=== PATIENT | male | born 1965 | race Caucasian/White ===

== ENCOUNTER → 2018-11-15 | Outpatient (CLI) | payer OTHER, MEDICARE ==
[~2018-11-15] MED LIST: AUGMENTIN875 MG GT; CARAFATE1 G1 PO; CLONIDINE1 EAC1 TD; ETHAMBUTOL PO; FLUDROCORTISON0.1 MG PEG; HUMALOG100 UNITS/ SC; HYDRALAZINE HCL10 MG PO; INSULIN GLARGINE SQ; INSULIN LISPRO; INSULIN LISPRO SQ; LANTUS SQ; LANTUS100 UNITS/ SC; LORTAB ELIXIR473 ML JT; PHENERGAN JT; PHENERGAN SUPP25 MG RC; PROTONIX40 MG JT; PYRAZINAMIDE PO; PYRIDOXINE PO; TRANSDERM-SCOP1 EACH TD; VALIUM JT; VALIUM5 MG JT; Z.0.DOMPERIDONE1 GM MC; Z.0.LANTUS100 UNIT/1; Z.0.LANTUS100 UNIT/1 SQ; Z.0.LISINOPRIL10 MG; Z.0.LISINOPRIL10 MG PO; Z.0.LISINOPRIL2.5 MG PO; Z.0.LORTAB 7.5-5001 PO; Z.0.LOTREL 5-10 MG1 PO; Z.0.NOVOLOG100 UNIT/; Z.0.PHENERGAN SUPP25 RC; Z.0.PROTONIX40 MG PO; Z.0.REGLAN10 MG; Z.0.REGLAN10 MG PO; Z.0.TOPROL XL25 MG PO; Z.0.TOPROL XL50 MG; Z.0.TOPROL XL50 MG PO; Z.0.ZOFRAN4 MG PO; [UNRECOGNIZED DRUG - OTHER] PO
--- NOTE | 2018-11-15 15:31 | Diagnostic Imaging Report ---
EXAM: Renal Ultrasound INDICATION: Acute renal failure. COMPARISON: None TECHNIQUE: Transverse and longitudinal images of the kidneys and bladder were obtained. FINDINGS: Right Kidney: Length: Measures 11.7 x 4.7 x 5.3 cm Appearance: Normal echogenicity. Collecting system: No hydronephrosis Stones: None Cyst/Mass: None Left Kidney: Length: Measures 11.9 x 5.3 x 4.9 cm Appearance: Normal echogenicity. Collecting system: No hydronephrosis Stones: There is a 1.1 cm echogenic stone within the upper pole with associated shadowing. Cyst/Mass: None Bladder: Unremarkable in appearance. Bilateral ureteral jets are visualized. IMPRESSION: A 1.1 cm nonobstructing left upper pole renal stone. No evidence of hydronephrosis. Signed by: Dr. Moe Allan MD on 11/15/2018 3:28 PM
== END ==
LOC: US 14:00
PROVIDERS: ATTEND Internal Medicine Nephrology
DX: N17.9 Acute kidney failure, unspecified (principal)
CPT/HCPCS: 76770

== ENCOUNTER 2019-07-30 11:41 | Observation (INO) | payer OTHER, MEDICARE ==
[~2019-07-30] VITALS: Ht 182.9 cm; Wt 112.9 kg
--- NOTE | 2019-07-30 12:31 | Diagnostic Imaging Report ---
EXAM: PA and lateral views of the chest. COMPARISON: Chest radiograph 01/08/2013, report only available CLINICAL HISTORY: ^[id number] ^[id number] FINDINGS: Lines/tubes: Right chest port with tip overlying the mid SVC. Lungs: The lungs are well inflated. Minimal atelectasis in both lung bases. No lobar consolidations or pulmonary edema. Mild linear reticular opacities in the peripheral right upper lobe. Few tiny ossified granuloma in the right upper lobe. Pleura: There is no pleural effusion or pneumothorax. Heart and mediastinum: The cardiomediastinal silhouette is normal. Few small calcified lymph nodes overlying both seamus. Bones and soft tissues: No acute bony abnormalities. Focal elevation of the right hemidiaphragm. Upper abdomen: Surgical clips overlying the right upper quadrant. IMPRESSION: Mild reticular opacities in the right upper lobe containing few calcified granulomas may represent sequela of this patient known latent TB. Superimposed infection cannot be excluded. No prior images are available for comparison. Recommend follow-up chest radiograph in 3-4 weeks. Signed by: Dr. Debra Mckinney M.D. on 07/30/2019 12:28 PM
[2019-07-30] MEDS ORDERED: CEFTRIAXONE SOD 1 GM/NS 50 ML 50 ML IV STA (12:58)
[2019-07-30] MEDS ORDERED: AZITHROMYCIN 500MG/NS 250 ML 250 ML IV ONE (13:00)
[2019-07-30] MEDS ORDERED: AZITHROMYCIN 500MG/NS 250 ML 250 ML ONE (13:14)
[2019-07-30] MEDS ORDERED: CEFTRIAXONE SOD 1 GM/NS 50 ML 50 ML IV ONE ×2 (13:14→14:00)
[2019-07-30] MEDS ORDERED: SODIUM CHLORIDE FLUSH 10 ML SYR INJ PRN (13:45)
[2019-07-30] MEDS ORDERED: SODIUM CHLORIDE 0.9% 1000 ML BAG IV ONE ×2 (13:45→14:00)
[2019-07-30] MEDS ORDERED: SODIUM CHLORIDE 0.9% 500ML 500 ML ONE ×2 (13:46→14:00)
[2019-07-30] MEDS: CEFTRIAXONE SOD 1 GRAM/0.9% SOD CHL 50ML BAG IV SCH (14:00)
[2019-07-30] MEDS: AZITHROMYCIN 500MG/SOD CHL 0.9% 250ML BAG IV SCH (15:19)
--- NOTE | 2019-07-30 17:15 | NUR ---
RCD PT BY BED PT IS ALERT AND ORIENTED VITALS CHECKED PT RESTING ON BED NO SIGNS OF ANY DISTRESS NOTED ADMISSION ASSESSMENT AND HISTORY DONE INSTRUCTED THE PT REGARDING HOSPITAL POLICY AND ROUTINE BED LOW AND LOCKED CALL LIGHT IN REACH
[2019-07-30] MEDS: SODIUM CHLORIDE 0.9% 1000ML 1,000 ML IV SCH ×2 (17:30→22:45)
[2019-07-30 17:40] VITALS: BP 160/94
[2019-07-30 17:49] VITALS: BP 160/94
[2019-07-30 17:58] VITALS: BP 160/94
[2019-07-30] MEDS ORDERED: DEPAKOTE250 MG PO (18:43)
[2019-07-30] MEDS ORDERED: MIDODRINE HCL2.5 MG PO (18:43)
[2019-07-30] MEDS ORDERED: ATORVASTATIN CA20 MG PO (18:43)
[2019-07-30] MEDS ORDERED: LEXAPRO10 MG PO (18:43)
[2019-07-30] MEDS ORDERED: ERGOCALCIFEROL1 GM PO (18:43)
[2019-07-30] MEDS ORDERED: SODIUM BICARBO650 MG PO (18:43)
--- NOTE | 2019-07-30 18:45 | NUR ---
PT RESTING ON BED BED SIDE REPORT GIVEN TO ONCOMING NURSE
[2019-07-30 20:00] VITALS: BP 177/96
[2019-07-30 20:13] LABS: CREATINE KINASE MB 4.2 ng/mL (0-5.0)
[2019-07-30 20:17] VITALS: BP 177/96
[2019-07-30] MEDS: ALBUTEROL SULF 0.083% NEB SOLN 3 ML NEB NEB SCH (21:00)
[2019-07-30] MEDS: ACETAMINOPHEN 325 MG TAB PO PRN (22:34)
--- NOTE | 2019-07-30 22:50 | NUR ---
Patient states he is using CPAP at night. Respiratory therapist notified nurse that patient heart rate increased after breathing treatment. Suggested to change breathing treatment to Xopenex. Paged Dr. Merlin Dennis for orders. Waiting for call back.
--- NOTE | 2019-07-30 23:40 | NUR ---
Call received from . Order received to continue CPAP and Albuterol.
[2019-07-31] VITALS (9 sets, daily range): BP systolic 105–213; BP diastolic 54–108
[2019-07-31] MEDS: ALBUTEROL SULF 0.083% NEB SOLN 3 ML NEB NEB SCH ×2 (03:55→07:16)
[2019-07-31 05:12] LABS: BASOPHILS # (AUTO) 0.1 (0.0-0.1); BASOPHILS % 0.5 % (0.0-1.0); EOSINOPHILS # (AUTO) 0.1 (0.0-0.4); EOSINOPHILS % 0.8 % (0.0-6.0); HEMATOCRIT 32.8 % (38.2-49.6); HEMOGLOBIN 10.4 g/dL (14.0-18.0); LYMPHOCYTES # (AUTO) 3.1 (1.0-3.2); MEAN CORPUSCULAR HGB CONC 31.7 g/dL (31-35); MEAN CORPUSCULAR VOLUME 94.5 fL (81-99); MONOCYTES # (AUTO) 1.3 (0.2-0.8); MONOCYTES % 8.5 % (4.4-11.3); NEUTROPHILS # (AUTO) 10.1 (2.1-6.9); NEUTROPHILS % 68.4 % (38.7-80.0); PLATELET COUNT 268 x10e3/uL (140-360); RED BLOOD COUNT 3.47 x10e6/uL (4.3-5.7); RED CELL DISTRIBUTION WIDTH 12.7 % (11.7-14.4)
[2019-07-31 05:38] LABS: CALCIUM 9.1 mg/dL (8.4-10.2); CREATININE, SERUM 3.21 mg/dL (0.72-1.25)
[2019-07-31 06:36] LABS: CREATINE KINASE MB 5.5 ng/mL (0-5.0)
[2019-07-31] MEDS: SODIUM CHLORIDE 0.9% 1000ML 1,000 ML IV SCH ×3 (06:45→23:03)
--- NOTE | 2019-07-31 07:10 | NUR ---
RCD PT AT BED PT IS ALERT AND ORIENTED PT RESTING ON BED IV PATENT BY SALINE FLUSH BED LOW AND LOCKED CALL LIGHT IN REACH
[2019-07-31] MEDS: ESCITALOPRAM OXALATE 10 MG TAB PO SCH (11:00)
[2019-07-31] MEDS: MIDODRINE 2.5 MG TAB PO SCH ×2 (12:00→17:07)
[2019-07-31 12:17] LABS: CREATINE KINASE MB 4.9 ng/mL (0-5.0)
[2019-07-31] MEDS: ACETAMINOPHEN 325 MG TAB PO PRN (13:06)
[2019-07-31] MEDS: LEVALBUTEROL HCL SOLN NEBU 0.63 MG/3 ML NEB INH SCH ×2 (13:43→20:15)
[2019-07-31] MEDS: CEFTRIAXONE SOD 1 GRAM/0.9% SOD CHL 50ML BAG IV SCH (13:45)
[2019-07-31] MEDS: AZITHROMYCIN 500MG/SOD CHL 0.9% 250ML BAG IV SCH (13:45)
[2019-07-31] MEDS: DIVALPROEX SODIUM 250 MG TAB...DR PO SCH (16:53)
--- NOTE | 2019-07-31 19:06 | NUR ---
PT RESTING ON BED BED SIDE REPORT GIVEN TO ONCOMING NURSE
--- NOTE | 2019-07-31 19:17 | Consultation ---
DATE OF CONSULTATION: 07/31/2019 Pulmonary Consultation REASON FOR CONSULT: Possibly the patient is concerned about the "right upper lobe pain" and shortness of breath, cough, and congestion. HISTORY OF PRESENT ILLNESS: Mr. Ambrosio is a 53-year-old male. He is known to Dr. Doherty for many years. He was a respiratory therapist. Currently, he does not work. He was diagnosed with severe gastroparesis a few years ago and underwent gastric pacemaker placement and since then, he is not working. He was diagnosed with TB in 2011 and what sounds like that he was probably treated for latent TB. He has some scarring on the chest x-ray. He is concerned that for a week, he is having cough, congestion, mild shortness of breath on exertion, and the congestion is progressive. He also has postnasal dripping. He denies any fever, nausea, vomiting, or diarrhea. His cough is also intermittent. It is somewhat productive. He has never smoked in his life. REVIEW OF SYSTEMS: GENERAL: Denies any fever or chills. HEAD: Denies any head trauma. ENT: Denies any earache. CVS: Denies any chest pain. RESPIRATORY: No shortness of breath. GI: Denies any nausea or vomiting. The rest of the review of systems are negative except as in HPI. PAST MEDICAL HISTORY: Diabetes, hypertension, hyperlipidemia, chronic kidney disease. PAST SURGICAL HISTORY: Gastric stimulator, placed PEG tube in the past, cholecystectomy, appendectomy. FAMILY AND SOCIAL HISTORY: He does not smoke, does not drink. PHYSICAL EXAMINATION: VITAL SIGNS: Temperature 98.1, pulse of 100, blood pressure 162/70, respiratory rate of 18, and O2 saturation 95% on room air. HEENT: Head atraumatic, normocephalic. NECK: Supple. CHEST: Reduced air entry, right upper lobe. Otherwise, clear to auscultation bilaterally. No wheezing. HEART: S1, S2 audible. ABDOMEN: Soft. EXTREMITIES: No pedal edema. NEUROLOGIC: Awake, alert. No focal neurologic deficit. LABORATORY DATA: Creatinine is 3.21, bicarb of 15. White count of 14, hemoglobin 10.4. Chest x-ray: I have reviewed the images, not showing any focal infiltrate. There is some scarring in the right upper lobe. ASSESSMENT: Mr. Ambrosio is a 53-year-old male who came in with cough, congestion, possibility of pneumonia versus upper respiratory tract infection, history of latent tuberculosis in the past, now with chronic kidney disease. Creatinine is 3.21 previously and the last one here was normal. However, Dr. Dennis's documentation says that the patient has chronic kidney disease. Current problems: 1. Possible pneumonia. 2. Abnormal chest x-ray with right upper lobe scarring, likely due to latent tuberculosis. 3. Diabetes mellitus with complications. 4. Gastroparesis, has gastric stimulator. 5. Hypertension. 6. Hyperlipidemia. PLAN: 1. Agree with IV Rocephin, azithromycin, and nebulizer treatment. I will do a CT chest without contrast to further evaluate the right upper lobe. Oxygen as needed to keep the O2 saturation more than or equal to 92%. 2. The patient also has history of obstructive sleep apnea and will be using the CPAP in his home settings. Thank you for this consult. MD HAL Gross/NOAM /[id number]
--- NOTE | 2019-07-31 20:04 | NUR ---
Notified Levar Bell regarding patient BP 201/106, 104. Start Metoprolol Tart 25 mg po BID, first does now.
[2019-07-31] MEDS: METOPROLOL TARTRATE 25 MG TAB PO SCH (20:25)
[2019-07-31] MEDS: ATORVASTATIN 20 MG TAB PO SCH (20:26)
[2019-08-01] VITALS (8 sets, daily range): BP systolic 140–179; BP diastolic 71–86
[2019-08-01] MEDS: LEVALBUTEROL HCL SOLN NEBU 0.63 MG/3 ML NEB INH SCH ×4 (00:30→19:45)
[2019-08-01] MEDS: MIDODRINE 2.5 MG TAB PO SCH ×3 (05:58→17:32)
[2019-08-01] MEDS: SODIUM CHLORIDE 0.9% 1000ML 1,000 ML IV SCH ×3 (05:58→22:45)
--- NOTE | 2019-08-01 06:36 | Diagnostic Imaging Report ---
EXAM: CT Chest WITHOUT contrast INDICATION cough, abnormal chest x-ray: COMPARISON: Chest x-ray 07/30/2019 7: Chest CT 05/15/2011 TECHNIQUE: Chest was scanned utilizing a multidetector helical scanner from the lung apex through the level of the adrenal glands without administration of IV contrast. Absence of intravenous contrast decreases sensitivity for detection of lymphadenopathy and vascular pathology. Coronal and sagittal reformations were obtained. Routine protocol was performed. IV CONTRAST: None COMPLICATIONS: None RADIATION DOSE: Total DLP: 762 mGy*cm Estimated effective dose: (DLP x 0.014 x size factor) mSv CTDIvol has been reviewed. It is below the limits set by the Radiation Protocol Committee (RPC). Dose modulation, iterative reconstruction, and/or weight based adjustment of the mA/kV was utilized to reduce the radiation dose to as low as reasonably achievable. FINDINGS: LINES/ TUBES: Right chest wall port with right IJ central venous catheter, tip in the superior cavoatrial junction.. LUNGS AND AIRWAYS: Right upper lobe groundglass, nodular, and reticular opacities and volume loss, similar compared to chest CT in 2011. Scarring and subsegmental atelectasis in the lateral aspect of the right midlung at a site of prior groundglass and tree-in-bud opacities seen on 2011. Bibasilar atelectasis. Airways are normal. PLEURA: The pleural spaces are clear. HEART AND MEDIASTINUM: The thyroid gland is normal. No mediastinal, hilar or axillary lymphadenopathy. The heart is normal in size. There is no pericardial effusion. Left anterior descending coronary and right artery calcifications. UPPER ABDOMEN: Unremarkable. Bilateral perinephric fat stranding. Nonobstructive left renal calculus. Cholecystectomy clips in the gallbladder fossa. Moderate colonic stool burden. Partially visualized linear metallic densities along the greater curvature of the gastric antrum. BONES: The visualized bony thorax is within normal limits. SOFT TISSUES: Unremarkable. IMPRESSION: Right upper lobe findings of scarring and volume loss are similar compared to chest CT in 2011, and focal scarring in the lateral aspect of the right lower lobe at site of prior infection in 2011, and are compatible with the chronic sequela of infection. Left anterior descending and right coronary artery calcific atherosclerosis. Signed by: Oskar Oviedo DO on 08/01/2019 6:33 AM
[2019-08-01 08:05] LABS: BASOPHILS # (AUTO) 0.1 (0.0-0.1); BASOPHILS % 0.7 % (0.0-1.0); EOSINOPHILS # (AUTO) 0.3 (0.0-0.4); EOSINOPHILS % 3.1 % (0.0-6.0); HEMATOCRIT 30.7 % (38.2-49.6); HEMOGLOBIN 9.9 g/dL (14.0-18.0); LYMPHOCYTES # (AUTO) 2.4 (1.0-3.2); LYMPHOCYTES % 22.9 % (18.0-39.1); MEAN CORPUSCULAR HEMOGLOBIN 30.4 pg (28-32); MEAN CORPUSCULAR HGB CONC 32.2 g/dL (31-35); MEAN CORPUSCULAR VOLUME 94.2 fL (81-99); MONOCYTES # (AUTO) 0.8 (0.2-0.8); MONOCYTES % 7.2 % (4.4-11.3); NEUTROPHILS # (AUTO) 6.9 (2.1-6.9); NEUTROPHILS % 65.3 % (38.7-80.0); PLATELET COUNT 283 x10e3/uL (140-360); RED BLOOD COUNT 3.26 x10e6/uL (4.3-5.7)
[2019-08-01 08:30] LABS: ANION GAP 17.3 mmol/L (8-16); CREATININE, SERUM 2.64 mg/dL (0.72-1.25); POTASSIUM 4.3 mmol/L (3.5-5.1)
[2019-08-01] MEDS: ESCITALOPRAM OXALATE 10 MG TAB PO SCH (08:33)
[2019-08-01] MEDS: DIVALPROEX SODIUM 250 MG TAB...DR PO SCH ×2 (08:33→17:32)
[2019-08-01] MEDS: SODIUM BICARBONATE 650 MG TAB PO SCH (08:33)
[2019-08-01] MEDS: METOPROLOL TARTRATE 25 MG TAB PO SCH ×2 (08:34→17:32)
--- NOTE | 2019-08-01 09:00 | NUR ---
Sent to R1 for review.
--- NOTE | 2019-08-01 12:00 | NUR ---
R1 recommending outpatient. Spoke to Dr. Dennis regarding plan. Informed him of R1's recommendation. He states pt not ready for discharge. States plan for possible dc tomorrow.
[2019-08-01] MEDS: CEFTRIAXONE SOD 1 GRAM/0.9% SOD CHL 50ML BAG IV SCH (13:34)
[2019-08-01] MEDS: AZITHROMYCIN 500MG/SOD CHL 0.9% 250ML BAG IV SCH (14:38)
[2019-08-01] MEDS: ATORVASTATIN 20 MG TAB PO SCH (20:48)
[2019-08-02] VITALS: BP 165/77
[2019-08-02] MEDS: LEVALBUTEROL HCL SOLN NEBU 0.63 MG/3 ML NEB INH SCH ×2 (01:00→07:05)
[2019-08-02 04:00] VITALS: BP 146/96
[2019-08-02] MEDS: MIDODRINE 2.5 MG TAB PO SCH ×2 (05:46→12:00)
[2019-08-02] MEDS: SODIUM CHLORIDE 0.9% 1000ML 1,000 ML IV SCH (06:32)
[2019-08-02] MEDS: SODIUM BICARBONATE 650 MG TAB PO SCH (08:45)
[2019-08-02] MEDS: METOPROLOL TARTRATE 25 MG TAB PO SCH (08:45)
[2019-08-02] MEDS: ESCITALOPRAM OXALATE 10 MG TAB PO SCH (08:45)
[2019-08-02] MEDS: DIVALPROEX SODIUM 250 MG TAB...DR PO SCH (08:45)
[2019-08-02 08:54] VITALS: BP 168/77
[2019-08-02 09:04] VITALS: BP 168/77
[2019-08-02] MEDS ORDERED: CEFUROXIME250 MG PO (11:41)
[2019-08-02 11:58] VITALS: BP 133/63
--- NOTE | 2019-08-02 13:00 | NUR ---
Discharge instructions and prescriptions were given to the patient. He verbalized understanding. IV to the left FA was removed with tip intact.
--- OUTSIDE RECORDS SUMMARY | 2019-08-05 12:03 | XMS REPORT | Summary of Care ---
Author Author [facility] Organization [facility] Address Unknown Phone Unavailable Care Team Providers Care Disability Benefits Specialist Name Role Phone Donna Le MD Unavailable Juan J Tyler MD PCP Juan J Tyler MD 24 Reason for Visit * Reason Comments Follow-up Visit - Diabetes Encounter Details Care Team Description Date Type Department Lisa Brock MD [address] [place] [address] Follow-up Visit - Diabetes 06/17/2019 Office Visit [facility] Endocrinology [address]; [address] [place] [address] Allergies Comments Active Allergy Reactions Severity Noted Date Levaquin 07/15/2012 Reglan 09/27/2012 documented as of this encounter (statuses as of 06/17/2019) Medications End Date Status Medication Sig Dispensed Refills Start Date Active escitalopram (LEXAPRO) 10 Take 2 Tabs 180 Tab 3 MG tabletIndications: by mouth 7 Depression, unspecified daily. depression type Active pantoprazole (PROTONIX) Take 1 Tab by 90 Tab 3 40 MG tabletIndications: mouth daily. 7 Gastroesophageal reflux disease, esophagitis presence not specified Active midodrine 10 MG Take 10 mg by 270 Each 3 TABSIndications: mouth 3 times 7 Orthostatic hypotension daily. Active fludrocortisone Take 1 Tab by 90 Each 3 (FLORINEF) 0.1 MG mouth daily. 7 tabletIndications: Orthostatic hypotension Active montelukast (SINGULAIR) Take 10 mg by 0 10 MG tabletIndications: mouth daily. 7 DM type 1 causing complication (HCCode), Dyslipidemia, Vitamin D deficiency, Fatigue, unspecified type Active Levocetirizine 0 Dihydrochloride 5 MG 7 TABSIndications: DM type 1 causing complication (HCCode), Dyslipidemia, Vitamin D deficiency, Fatigue, unspecified type Active divalproex (DEPAKOTE) 250 TAKE ONE (1) 3 MG ER tablet TABLET(S) BY 8 MOUTH DAILY. Active cyanocobalamin 1000 INJECT ONE 3 MCG/ML injection (1) ML(S) 8 ONCE A DAY FOR 4 DAYS, THEN ONCE A WEEK. Active atorvastatin (LIPITOR) 40 Take 1 Tab by 30 Tab 5 MG tabletIndications: mouth daily. 9 Dyslipidemia Active insulin aspart (NOVOLOG) Use up to 70 60 mL 4 100 UNIT/ML units daily 9 injectionIndications: DM via insulin type 1 causing pump complication (HCCode), Dyslipidemia, Vitamin D deficiency, Fatigue, unspecified type Active Glucose Blood Strips Check glucose 400 Each (CONTOUR NEXT TEST) 4x daily; Dx 9 E10.8 Active Vitamin D, 0 Ergocalciferol, 1.25 MG 9 (60841 UT) CAPS Active sodium bicarbonate 650 MG TAKE ONE (1) 2 tablet TABLET(S) BY 9 MOUTH TWICE A DAY. documented as of this encounter (statuses as of 06/17/2019) Active Problems Problem Noted Date Hypoglycemia unawareness in type 1 diabetes mellitus (HCCode) 04/06/2018 Ulcer of other part of foot 07/13/2013 Overview: L heel wound He has traumatized the medial aspect of his left heel. It is a superficial lesion that is clean but is about 3 cm in diameter. -continue to leave it exposed to air during day -continue antibiotic cream -hydrogen peroxide -must wear some type of shoes at home Diabetic retinopathy (HCCode) 07/13/2013 Overview: He will schedule appt with opthalmologist in July. He was told that he needs to have laser tx. Neurogenic bladder, NOS 07/13/2013 Overview: Bladder was distended and he was unable to void. Dr. Aguilar placed a suprapubic catheter in his bladder. He says that his vision and dexterity do not permit self-cath. works, so she could only do it once a day. Currently, he is not taking any prophylactic antibiotic, but he and his know to seek medical help if he has fever. Orthostatic hypotension 07/12/2013 Overview: . Postural Hypotension - This is likely due to autonomic dynfunction from poorly controlled DM over several years as demonstrated by the severity of his gastroparesis. -continue wearing support hose up above knee (especially when heel wound improved) -continue fludrocortisone 50mcg qdaily - continue midodrine 10 mg tid -abd binder is uncomfortable with the feeding tubes -1g salt tablets BID -re-start 20 mEq KCl daily - monitor orthostatic BP - make transitions slowly from supine to sitting and sitting to standing - raise head of bed on 3 inch blocks QUINN (acute kidney injury) (HCCode) 07/12/2013 Overview: 06/18/2013 18:14 06/19/2013 04:51 06/27/2013 13:43 Creatinine 1.29 (H) 1.18 0.96 This does not appear to be a problem at this time 07/12/13 DM type 1 causing complication (HCCode) 05/02/2013 Overview: A1c 8. On continous TF and BID soup -change to NPH 16U q AM and 14U qHS -continue regular SSI Low Dose 1U for every 50 > 200 before evening chicken soup -AM and HS accucheck and predinner soup accucheck -hypoglycemia protocol We will have to accept moderate glucose control because of multiple medical problems. Gastroparesis 07/15/2012 Overview: He has J-tube and is receiving TF 24 hours/d He has been able to tolerate some soup at meal times HTN (hypertension) 07/15/2012 Overview: Raise head of bed 3 inches on blocks HLD (hyperlipidemia) 07/15/2012 Depression 07/15/2012 Tuberculosis 07/15/2012 documented as of this encounter (statuses as of 06/17/2019) Social History Date Tobacco Use Types Packs/Day Years Used Never Smoker Smokeless Tobacco: Never Used Drinks/Week oz/Week Comments Alcohol Use No Sex Assigned at Date Recorded Not on file Industry Job Start Date Occupation Not on file Not on file Not on file Travel End Travel History Travel Start No recent travel history available. documented as of this encounter Last Filed Vital Signs Reading Time Taken Comments Vital Sign 118/60 06/17/2019 2:19 PM CDT Blood Pressure 105 06/17/2019 2:19 PM CDT Pulse - - Temperature - - Respiratory Rate - - Oxygen Saturation - - Inhaled Oxygen Concentration 112 kg (247 lb) 06/17/2019 2:19 PM CDT Weight 167.6 cm (5' 6") 06/17/2019 2:19 PM CDT Height 39.87 06/17/2019 2:19 PM CDT Body Mass Index documented in this encounter Patient Instructions * Patient Instructions* Lisa Brock MD - 06/17/2019 2:30 PM CDT Schedule eye exam Please remember to use a temporary basal of 50% when you are going to be active and have a snack before starting the activity. I recommend continuing to use a continuous glucose sensor with alarms for preven tion and detection of hypoglycemia (low blood sugars) especially because you hav e hypoglycemia unawareness. Take a square wave bolus dose with meals: 1.0 to 3.0 units If you have blood sugars less than 80 mg/dl, the basal rate should be decreased further. Return for a follow-up visit in 3 months Thank you [facility]. If you have questions about your visit or your treatment, or if you have difficst. [facility] scheduling an appointment, please call us at [phone] and leave a messag e for the nurse Ms. Appiah, or please send us a [employer] message. documented in this encounter Progress Notes * Lisa Brock MD - 06/17/2019 2:30 PM CDT [facility] END[facility]CR[facility] [address]; [address] [facility] [address] Dept: [phone] Dept Chief Complaint: Follow-up Visit - Diabetes History of Present Illness Mr. Ambrosio is a 53 y.o. White male who presents for diabetes management. H/o long standing uncontrolled diabetes (likely type 1, Dx age 23, had DKA previ ously) complicated by PDR, peripheral and autonomic neuropathy, CKD. + hypoglycemia awareness. Using sensor since 03/2018 but ocassionally skips. Compliant with diet recommendations. Seeing Neurology for mood swings treated with Depakote, and h/o head injury. 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 Cataract surgery, PDR s/p later both eyes. Followed by Dr. Andrew Rosales. Kidney: CKD III, seeing Dr. Gloria Tyler, recommended to decrease sugar, K. H/o peripheral neuropathy (Numbness to knee b/l and finger tips) and multiple di abetic foot ulcer H/o Left big toe ulcer, Right sole median side ulcer Left big toe ulcer- was hospitalized for 30+ days in OSH for infected foot ulcer involving bone- received 6 weeks abx. H/o Left 1st toe/metatarsal osteomyelitis healed. Followed by [facility] every 3 months: Dr. Sanchez. LLE doppler at [facility] 08/2016 negative for DVT. W/ Autonomic neuropathy. +Gastroparesis, symptoms resolved 2017. S/p pacemaker ( Dr. Acharya at [facility]). Eating regular food. G tube opening surgically closed. Autonomic bladder (Dr. Aguilar). +Bladder dysfunction. No more self cath. Orthostatic hypotension. Med: Fludrocortisone 0.05 mg daily and Midodrine 10 mg TID, prescribed by pcp Dr. Le. No support hose, no high salt. Peripheral neuropathy+ Med: none. He says that he feels better when he does not take it because it makes him drowsy. Depression: On Lexapro 10 mg daily for depression. Lipids managed by pcp Dr. Le. 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 Pump download Medtronic 630G since 10/2016 Using Guardian sensor BG's less variable than the past, one episode of hypoglycemia when he was active and did not use a temporary basal Current insulin settings: Basal 00:00 0.90 04:00 0.85 08:00 1.00 (Previously 1.25 u basal (decreased from 1.35 in 03/2018 and from 1.5 in 11/2017) SN 60 ICR 25 IAT 6 hours Occasionally using manual Bolus 0.25 to 3.5 units (previously 0- 4.5 units once daily, on several days, no bolus dose at all) TDD 28 Basal/ bolus 78/22 % (previously 95/5) Last A1C: Lab Results Component Value Date HGBA1C 6.6 (A) 06/17/2019 Social History Tobacco Use Smoking status: Never Smoker Smokeless tobacco: Never Used Substance Use Topics Alcohol use: No Drug use: No Past Medical History: Diagnosis Date Depression DM (diabetes mellitus) (HCCode) Gastroparesis HLD (hyperlipidemia) HTN (hypertension) Tuberculosis Past Surgical History: Procedure Laterality Date HX ABCESS DRAINAGE 06/08/12 HX APPENDECTOMY HX CHOLECYSTECTOMY, LAPAROSCOPIC apr 2012 HX GASTROSTOMY TUBE PLACEMENT 06/01/12 HX LUMBAR DISCECTOMY 11/21/14 MIS Left L4-L5 Microdiscectomy HX LUMBAR LAMINECTOMY HX VASECTOMY Family History Problem Relation Name Age of Onset Diabetes Other CVA/Stroke Paternal Grandmother Colon Cancer Maternal Grandmother Current Outpatient Medications Medication Sig Dispense Refill atorvastatin (LIPITOR) 40 MG tablet Take 1 Tab by mouth daily. 30 Tab 5 cyanocobalamin 1000 MCG/ML injection INJECT ONE (1) ML(S) ONCE A DAY FOR 4 D AYS, THEN ONCE A WEEK. 3 divalproex (DEPAKOTE) 250 MG ER tablet TAKE ONE (1) TABLET(S) BY MOUTH DAILY . 3 escitalopram (LEXAPRO) 10 MG tablet Take 2 Tabs by mouth daily. 180 Tab 3 fludrocortisone (FLORINEF) 0.1 MG tablet Take 1 Tab by mouth daily. 90 Each 3 Glucose Blood Strips (CONTOUR NEXT TEST) Check glucose 4x daily; Dx E10.8 40 0 Each 10 insulin aspart (NOVOLOG) 100 UNIT/ML injection Use up to 70 units daily via insulin pump 60 mL 4 Levocetirizine Dihydrochloride 5 MG TABS midodrine 10 MG TABS Take 10 mg by mouth 3 times daily. 270 Each 3 montelukast (SINGULAIR) 10 MG tablet Take 10 mg by mouth daily. pantoprazole (PROTONIX) 40 MG tablet Take 1 Tab by mouth daily. (Patient not taking: Reported on 11/05/2018) 90 Tab 3 sodium bicarbonate 650 MG tablet TAKE ONE (1) TABLET(S) BY MOUTH TWICE A DAY . 2 Vitamin D, Ergocalciferol, 1.25 MG (20984 UT) CAPS No current facility-administered medications for this visit. Allergies Allergen Reactions Angie Chavez Physical Exam Vitals: 06/17/19 1419 BP: 118/60 BP Location: right arm Patient Position: Sitting Cuff Size: regular Pulse: 105 Weight: 247 lb (112 kg) Height: 5' 6" (1.676 m) Appear: Alert, well groomed, undistressed Eyes: TEODORO, no icterus, no xanthelasmata or redness HEENT: OP clear Neck: no JVD, no thyromegaly, no thyroid nodules palpated, no acanthosis CVS: regular rate and rhythm Lungs: unlabored respirations, no accessory muscle use, CTAB Skin: no rashes NEUROSURGERY SPINE PHYSICIAN: no focal deficits noted, reflexes normal Musculoskeletal: no defects are noted Psych: AOx3 02/2019 Diabetic Foot Exam Performed Inspection Left - No ulcers or lesions noted and Right - No ulcers or lesions n oted Pulses Left Normal and Right Normal Monofilament Exam Left - Normal and Right - Normal Laboratory, Radiographic, Cystopathologic Data I reviewed clinical lab tests and imaging. Assessment and Plan Stephen Ambrosio is a 53 y.o. male with Type 1 diabetes with hypoglycemia unawareness. 1. DM type 1 causing complication Significantly less hypoglycemia than past visits. Hgba1C at goal therefore maribel nue current basal rate and continue bolus dose with meals 2.0 to 3.0 units with square wave bolus. Discussed diet and exercise recommendations, glycemic targets, strategies to pre vent diabetes complications, annual eye exam, regular dental exam, hypoglycemia prevention and management and proper foot care. Discussed importance of consistency in meal-times and meal amounts. F/U in 3 months. Reviewed plan of care and instructions with pt and he verbalized his understandi ng. 2. Hypoglycemia unawareness in type 1 diabetes mellitus Improved compliance with CGM. Recommend using CGM continuously. - POCT HEMOGLOBIN A1C Patient Instructions Schedule eye exam Please remember to use a temporary basal of 50% when you are going to be active and have a snack before starting the activity. I recommend continuing to use a continuous glucose sensor with alarms for preven tion and detection of hypoglycemia (low blood sugars) especially because you hav e hypoglycemia unawareness. Take a square wave bolus dose with meals: 1.0 to 3.0 units If you have blood sugars less than 80 mg/dl, the basal rate should be decreased further. Return for a follow-up visit in 3 months Thank you for choosing [facility]. If you have questions about your visit or your treatment, or if you have difficu lty scheduling an appointment, please call us at [phone] and leave a messag e for the nurse Ms. Appiah, or please send us a Greendizer message. I spent 25 minutes with this patient and > than 50% of the visit time was spent on counseling re dm management. documented in this encounter Plan of Treatment Health Maintenance Due Date Last Done Comments COLON CANCER SCREENIN1963 COLONOSCOPY MEDICARE AWV 1965 TETANUS SHOT (ADULT) 1978 ANNUAL DIABETIC 1981 RETINOPATHY SCREENING BMI FOLLOW UP PLAN 1981 HEPATITIS C SCREENING 1981 HIV SCREENING 1981 FLU VACCINE > 6 MONTHS 03/17/2019 05/22/2017 A1C TESTING EVERY 6 08/31/2019 02/28/2019, 10/21/2018, 08/05/2018, MONTHS Additional history exists ANNUAL DIABETIC FOOT EXAM 02/29/2020 02/28/2019, 10/21/2018, 08/05/2018, Additional history exists documented as of this encounter Procedures Comments Procedure Name Priority Date/Time Associated Diagnosis POCT HEMOGLOBIN A1C Routine 06/17/2019 DM type 1 causing 2:48 PM CDT complication (HCCode) documented in this encounter Results * POCT HEMOGLOBIN A1C (06/17/2019 2:48 PM CDT) HEMOGLOBIN A1C 6.6 (A) 4.0 - 5.6 % Specimen Blood documented in this encounter Visit Diagnoses Diagnosis DM type 1 causing complication (HCCode) - Primary Type I (juvenile type) diabetes mellitus with unspecified complication, not stated as uncontrolled documented in this encounter Insurance Type Payer Benefit Subscriber ID Effective Phone Address Plan / Dates Group PPO [employer] OPEN xxxxxxxxxxx 2018- [address] ACCESS Present [id number] PLUS - [place] [address] Medicare MEDICARE MEDICARE xxxxxxxxxxx Effective [address] for all [id number] [place] [address] documented as of this encounter
--- OUTSIDE RECORDS SUMMARY | 2019-08-05 12:03 | XMS REPORT ---
Author Author [facility] Address Unknown Phone Unavailable Care Team Providers Care Technology Trainer Name Role Phone WILMAN REINA Unavailable Unavailable Tamika SNIDER Unavailable Unavailable YAMILEX WARREN Unavailable Unavailable LIZBET SAEED Unavailable Unavailable Problems This patient has no known problems. Allergies, Adverse Reactions, Alerts This patient has no known allergies or adverse reactions. Medications This patient has no known medications. Results Test Description Test Time Test Comments Text Results Atomic Results Result Comments CT CHEST WO 2019-08-01 06:23:00 [place] [address] Patient Name: NINI GRIFFITH MR #: [id number] : 1965 Age/Sex: 53/M Req #: [id number] Adm Physician: WILMAN REINA MD Ordered by: LAURENT OKEEFE MD Report #: [id number] Location: MED/SURG Room/Bed: [facility] Procedure: [id number] CT/CT CHEST WO Exam Date: 07/31/19 Exam Time: 1458 REPORT STATUS: Signed EXAM: CT Chest WITHOUT contrast INDICATION cough, abnormal chest x-ray: COMPARISON: Chest x-ray 07/30/2019 7: Chest CT 05/15/2011 TECHNIQUE: Chest was scanned utilizing a multidetector helical scanner from the lung apex through the level of the adrenal glands without administration of IV contrast. Absence of intravenous contrast decreases sensitivity for detection of lymphadenopathy and vascular pathology. Coronal and sagittal reformations were obtained. Routine protocol was performed. IV CONTRAST: None COMPLICATIONS: None RADIATION DOSE: Total DLP: 762 mGy*cm Estimated effective dose: (DLP x 0.014 x size factor) mSv CTDIvol has been reviewed. It is below the limits set by the Radiation Protocol Committee (RPC). Dose modulation, iterative reconstruction, and/or weight based adjustment of the mA/kV was utilized to reduce the radiation dose to as low as reasonably achievable. FINDINGS: LINES/ TUBES: Right chest wall port with right IJ central venous catheter, tip in the superior cavoatrial junction.. LUNGS AND AIRWAYS: Right upper lobe groundglass, nodular, and reticular opacities and volume loss, similar compared to chest CT in 2011. Scarring and subsegmental atelectasis in the lateral aspect of the right midlung at a site of prior groundglass and tree-in-bud opacities seen on 2011. Bibasilar atelectasis. Airways are normal. PLEURA: The pleural spaces are clear. HEART AND MEDIASTINUM: The thyroid gland is normal. No mediastinal, hilar or axillary lymphadenopathy. The heart is normal in size. There is no pericardial effusion. Left anterior descending coronary and right artery calcifications. UPPER ABDOMEN: Unremarkable. Bilateral perinephric fat stranding. Nonobstructive left renal calculus. Cholecystectomy clips in the gallbladder fossa. Moderate colonic stool burden. Partially visualized linear metallic densities along the greater curvature of the gastric antrum. BONES: The visualized bony thorax is within normal limits. SOFT TISSUES: Unremarkable. IMPRESSION: Right upper lobe findings of scarring and volume loss are similar compared to chest CT in 2011, and focal scarring in the lateral aspect of the right lower lobe at site of prior infection in 2011, and are compatible with the chronic sequela of infection. Left anterior descending and right coronary artery calcific atherosclerosis. Signed by: Oskar Oviedo DO on 08/01/2019 6:33 AM Dictated By: OSKAR OVIEDO DO 2 Transcribed By: JAMES on 08/01/19632 COPY TO: LAURENT OKEEFE MD CXR 2 [facility] 2019-07-30 12:25:00 [facility] [address] [place] [address] Patient Name: NINI GRIFFITH MR #: [id number] : 1965 Age/Sex: 53/M Req #: [id number] Adm Physician: Ordered by: ALTAF LANCASTER MD Report #: [id number] Location: FS Room/Bed: Procedure: [id number] HOPD/CXR 2 VIEW - HOPD Exam Date: 07/30/19 Exam Time: 1210 REPORT STATUS: Signed EXAM: PA and lateral views of the chest. COMPAR TED: Chest radiograph 01/08/2013, report only available CLINICAL HISTORY: [id number] FINDINGS: Lines/tubes: Right chest port with tip overlying the mid SVC. Lungs: The lungs are well inflated. Minimal atelectasis in both lung bases. No lobar consolidations or pulmonary edema. Mild linear reticular opacities in the peripheral right upper lobe. Few tiny ossified granuloma in the right upper lobe. Pleura: There is no pleural effusion or pneumothorax. Heart and mediastinum: The cardiomediastinal silhouette is normal. Few small calcified lymph nodes overlying both seamus. Bones and soft tissues: No acute bony abnormalities. Focal elevation of the right hemidiaphragm. Upper abdomen: Surgical clips overlying the right upper quadrant. IMPRESSION: Mild reticular opacities in the right upper lobe containing few calcified granulomas may represent sequela of this patient known latent TB. Superimposed infection bob ot be excluded. No prior images are available for comparison. Recommend follow-up chest radiograph in 3-4 weeks. Signed by: Dr. Debra Montgomery M.D. on 07/30/2019 12:28 PM Dictated By: DEBRA MONTGOMERY MD 1228 Transcribed By: JAMES on 07/30/19 1228 COPY TO: ALTAF LANCASTER MD TISSUE EXAM 2018-12-02 16:45:00 Surgical Pathology Report Case: [id number] Authorizing Provider: Bruce Snider MD Collected: 12/02/2018 1312 Ord ering Location: [facility] Received: 12/02/2018 1358 SERVICES Pathologist: Be Herron MD Specimen: Explant, Gastric Stimulator Battery (Identification Only) SITE UNDESIGNATED, FOREIGN BODY REMOVAL: - BATTERY IDENTIFIED Signing Pathologist Direct Phone Line: [phone] signed by Be Herron MD on 12/02/2018 at 4:45 [id number]. Explant tissue, gastric stimulator battery (identification only)Received fresh labeled "explant tissue" is a metallic monzon ovoid foreign body measuring 6 x 5 x 0.5 cm consistent with the Battery. The surface is inscribed with the following: [employer] SN [facility] [id number] No sections are submitted. This case is gross only. Gross photographs are taken. KM/pl POCT-GLUCOSE METER 2018-12-02 13:12:00 POC-GLUCOSE METER (BEAKER) (test mnlb=3375) 159 mg/dL 70-110 TESTED AT [place] [address] POCT-GLUCOSE [id number] 11:05:00* Test Item Value Reference Range Comments POC-GLUCOSE METER (BEAKER) (test jxac=7448) 197 mg/dL 70-110 TESTED AT [place] [address] US RENAL RETROPERITONEAL [id number] 15:26:00 [facility] [address] [place] [address] Patient Name: NINI GRIFFITH MR #: [id number] : 1965 Age/Sex: 53/M Req #: [id number] Adm Physician: Ordered by: YAMILEX WARREN MD Report #: [id number] Location: Room/Bed: Procedure: [id number] U S/US RENAL RETROPERITONEAL COMP Exam Date: 11/15/18 Exam Time: 1428 REPORT STATUS: Sign ed EXAM: Renal Ultrasound INDICATION: Acute renal failure. COMP ARISON: None TECHNIQUE: Transverse and longitudinal images of the kidneys and bladder were obtained. FINDINGS: Right Kidney: Length: Me asures 11.7 x 4.7 x 5.3 cm Appearance: Normal echogenicity. Collecting sys tem: No hydronephrosis Stones: None Cyst/Mass: None Left Kidney: Fabricio gth: Measures 11.9 x 5.3 x 4.9 cm Appearance: Normal echogenicity. Collect ing system: No hydronephrosis Stones: There is a 1.1 cm echogenic stone within the upper pole with associated shadowing. Cyst/Mass: None Bladder: Unremarkable in appearance. Bilateral ureteral jets are visualized. IMPRES GERMAIN: A 1.1 cm nonobstructing left upper pole renal stone. No evidence of hy dronephrosis. Signed by: Dr. Cruzito Meade MD on 11/15/2018 3:28 PM Dict ated By: CRUZITO MEADE MD 1528 Transcribed By: JAMES on 11/15/18 1528 COPY TO: YAMILEX WARREN MD AFB CULTURE + [id number] 19:08:00* Test Item Value Reference Range Comments CULTURE (BEAKER) (test iixl=9245) No acid-fast bacilli isolated in 42 days AFB SMEAR (BEAKER) (test jywv=849) No acid fast bacilli seen
--- NOTE | 2019-08-28 23:17 | Discharge Summary ---
CHIEF COMPLAINT: Congestion, shortness of breath, cough. FINAL DIAGNOSES: Acute bronchitis, diabetes type 2, history of gastroparesis. HOSPITAL COURSE: A 53-year-old male with known history of hypertension, diabetes type 1, hyperlipidemia, chronic kidney disease stage 4 with gastroparesis, brought to the ER with a several-day history of increasing cough, shortness of breath, chest congestion. He states he is unable to lay down flat. No fever or chills. No nausea or vomiting. He underwent review and evaluation in the emergency room and with review of data, the patient was admitted to facility for treatment regarding issues of shortness of breath, congestion, question of pneumonia, diabetes type 2, chronic kidney disease stage 4, acute bronchitis. With admission, the patient was started on IV antibiotics and nebulizer treatments. Home medications were continued. We also continued further monitoring of the patient's blood sugars. From the ER, the patient was placed on the Med-Surg floor, was on ADA diet. He was resting comfortably, had no new complaints. He was started on nebulizer treatments, given antibiotics IV. Daily medications were continuing as well. His routine diabetic coverage was continuing also. Laboratory studies were being reviewed, and the patient's nebulizer treatments were being changed to Xopenex treatment. X-rays of chest were showing right upper lobe scarring, status post tuberculosis. The patient was noted to be feeling better, still was having his cough. He was running mild hypertension. Blood sugars were continued to be watched. Continued on nebulizer treatments. The patient continued resting comfortably. He was responding well to treatment. IVs were able be discontinued. The patient will be scheduled for discharge to continue p.o. medications on outpatient basis. While in the facility, the patient underwent pulmonary followup with Dr. Retana regarding shortness of breath, cough, and congestion, also having issues of right upper lobe pain. Following review of the patient, his impression was possible pneumonia. Abnormal chest x-ray with right upper lobe scarring, likely due to latent tuberculosis. Diabetes mellitus with complications. Gastroparesis, he has a gastric stimulator, hypertension, and hyperlipidemia. Agree with current care. We will be obtaining a CT of the chest. He states that the patient has history of obstructive sleep apnea and will be using CPAP at home. IMAGING: Chest x-ray finding shows mild reticular opacities in the right upper lobe containing few calcified granulomas, may represent sequelae of this patient's known latent TB. Superimposed infection cannot be excluded. CT of chest reveals right upper lobe findings of scarring and volume loss of similar compared to chest CT in 2011. Focal scarring in the lateral aspect of the right lower lobe at site of prior infection in 2011, compatible with chronic sequelae of infection. Left anterior descending and right coronary artery calcified atherosclerosis. Cultures; blood negative and sputum negative. LABORATORY STUDIES: Shows initial CBC, white cell count elevated at 14,700, H and H were low at 10.4 and 32.8. Followup CBC shows a white cell count improved to 10,500, H and H trended down to a final study of 9.9 and 30.7. Chemistries show initial glucose of 143. Cardiac enzymes normal. Initial electrolytes were stable. BUN was 37, creatinine was 3.21. Followup glucose 208. Final glucose 156. Final electrolytes stable. Final kidney functions with BUN 33 and creatinine 2.64. The patient responded well. As mentioned, IVs were discontinued. The patient will continue on p.o. antibiotics at home. With discharge, the patient will continue on his diabetic diet. No equipments or supplies are necessary. No drains or [place] were needed. Activity as directed by me as well as by Dr. Retana. The patient will be returning back to his PCP within 7 to 10 days. The patient will continue on atorvastatin calcium 20 mg p.o. at bedtime, cefuroxime 250 p.o. q.12, Depakote 250, vitamin D2 of 1.25 mg p.o. once daily, Lexapro 10 mg p.o. daily, midodrine 10 mg p.o. t.i.d., sodium bicarbonate 650 p.o. daily. If any further questions or concerns that he might have, he will be contacting his PCP. Dictated by KARAN Patel Arpit Dennis MD CC/MODL /[id number]
== END 2019-08-02 13:22 | disposition home or self-care (01) ==
LOC: FSED 11:41 → ERHOLD 14:21 → MED/SURG2 17:20
DX: J20.9 Acute bronchitis, unspecified (principal); E11.43 Type 2 diabetes mellitus with diabetic autonomic (poly)neuropathy; K31.84 Gastroparesis; Z79.4 Long term (current) use of insulin; I10 Essential (primary) hypertension; E78.5 Hyperlipidemia, unspecified; Z22.7 Latent tuberculosis; I12.9 Hypertensive chronic kidney disease with stage 1 through stage 4 chronic kidney disease, or unspecified chronic kidney disease; E11.22 Type 2 diabetes mellitus with diabetic chronic kidney disease; N18.4 Chronic kidney disease, stage 4 (severe); D64.9 Anemia, unspecified
CPT/HCPCS: 36415 ×4; 71046; 71250; 80048 ×2; 80053; 80076; 82550 ×2; 82553 ×2; 82948 ×4; 83518; 83605; 83880; 84484 ×2; 85025 ×3; 87040; 87070; 87205; 87400; 93005; 94640 ×6; 94660; 99284; G0378 ×4; J0456 ×3; J0696 ×3; J7030 ×2; J7040